=== PATIENT | male | born 1995 | race Caucasian/White ===

== ENCOUNTER 2018-04-08 16:57 | Emergency (ER) | payer OTHER ==
[~2018-04-08] VITALS: Ht 185.4 cm; Wt 79.4 kg
[2018-04-08] MEDS ORDERED: XANAX 0.5 MG0.5 MG PO (17:36)
[2018-04-08] MEDS ORDERED: VISTARIL 25 MG25 M1 PO (17:36)
[2018-04-08 17:48] VITALS: BP 138/61
== END 2018-04-08 17:49 | disposition home or self-care (01) ==
LOC: M.ERS 16:57
DX: F41.0 Panic disorder [episodic paroxysmal anxiety] (principal)